=== PATIENT | female | born 1995 | race African-American/Black ===

== ENCOUNTER 2022-04-07 10:59 | Emergency (ER) | payer BC, OTHER ==
[~2022-04-07] VITALS: Ht 177.8 cm; Wt 105.0 kg
[2022-04-07 11:03] VITALS: BP 117/76
[2022-04-07] MEDS ORDERED: ACETAMINOPHEN 500MG TABLET PO ONE (13:15)
[2022-04-07 14:22] LABS: BASOPHILS % 1.1 % (0.0-2.0); EOSINOPHILS % 2.6 % (0.0-5.0); HEMOGLOBIN. 12.9 g/dL (12.0-16.0); LYMPHOCYTES % 32.7 % (20.0-50.0); MEAN CORPUSCULAR VOLUME 80.5 fL (81.0-99.0); MEAN PLATELET VOLUME 8.6 fl (7.4-10.4); MONOCYTES % 8.4 % (2.0-8.0); NEUTROPHILS % 55.2 % (40.0-76.0); PLATELET 257 x1000/uL (130-400); RED BLOOD CELL COUNT 4.97 mill/uL (4.2-5.4); RED CELL DISTRIBUTION WIDTH 13.7 % (11.6-14.6)
[2022-04-07 14:29] LABS: CHLORIDE 106 mEq/L (98-107)
[2022-04-07 14:44] LABS: HCG SCREEN NEGATIVE
== END 2022-04-07 15:22 | disposition home or self-care (01) ==
LOC: ER 10:59
DX: N93.8 Other specified abnormal uterine and vaginal bleeding (principal); N83.209 Unspecified ovarian cyst, unspecified side
CPT/HCPCS: 36415; 80053; 84703; 85025; 86850; 86900; 99283